=== PATIENT | male | born 1940 | race Caucasian/White ===

== ENCOUNTER 2016-07-09 09:24 | Emergency (ER) | payer OTHER, MEDICAID ==
[~2016-07-09] VITALS: Ht 165.1 cm; Wt 65.8 kg
[2016-07-09 09:25] VITALS: BP 117/58; PULSE 62; RESP 18; TEMP 97.9; O2SAT 98
--- NOTE | 2016-07-09 09:25 | NUR ---
Arrived via BLS ambulance from [facility] where he sought alf from rain. States he has been drinking tequila though he is not able to say how much or when. Attempted to ambulate patient in room. Patient nearly fell down dur to imbalence, instructed patient to sleep and stay in bed. Patient to ER bed 4 to gown for evaluation. Side rails up. Report given to Sujit ESPINO.
--- NOTE | 2016-07-09 09:26 | NUR ---
ER Dr. Wayne at bedside examining patient.
--- NOTE | 2016-07-09 09:30 | NUR ---
Pt sleepy responding to question in [place]. Pt has no complaint of pain,chest pain or SOB. H/O ETOH abuse. No acute distress noted.
--- NOTE | 2016-07-09 10:25 | NUR ---
Pt given urinal per request. Pt able to w/o assist.
--- NOTE | 2016-07-09 11:00 | NUR ---
Pt ambulating w/steady for room requesting to leave. Pt cooperative w/waiting for ACI.
[2016-07-09 11:15] VITALS: BP 116/60; PULSE 62; RESP 18; TEMP 97.9; O2SAT 98
--- NOTE | 2016-07-09 11:15 | NUR ---
Patient given written and verbal discharge instructions and verbalizes understanding. ER MD discussed with patient the results and treatment provided. Given copies of tests performed in ER. Patient in stable condition. ID arm band removed. Patient educated on pain management and to follow up with PMD. Pain Scale 0. Opportunity for questions provided and answered.
== END 2016-07-09 11:15 | disposition home or self-care (01) ==
LOC: SED 09:24
DX: F10.229 Alcohol dependence with intoxication, unspecified (principal)
CPT/HCPCS: 99283

== ENCOUNTER 2016-07-22 01:18 | Emergency (ER) | payer OTHER, MEDICAID ==
[~2016-07-22] VITALS: Ht 167.6 cm; Wt 74.8 kg
[2016-07-22 01:28] VITALS: BP 113/65; PULSE 85; RESP 16; TEMP 97.7; O2SAT 96
--- NOTE | 2016-07-22 01:28 | NUR ---
Patient to ER bed 8 to gown for evaluation. Side rails up.
[2016-07-22] MEDS ORDERED: MAG HYDROX/AL HYDROX/SIMETH 30 ML, BELLADONNA ALKALOIDS/PHENOBARB 10 ML, LIDOCAINE VISC... PO ONE ×3 (01:30)
--- NOTE | 2016-07-22 01:30 | NUR ---
pt in bed 8 with + ETOH, also c/o upper abdominal pain. Dr Brant beckford.
--- NOTE | 2016-07-22 01:34 | NUR ---
ER at bedside examining patient.
[2016-07-22 01:49] VITALS: BP 123/72; PULSE 82; RESP 16; TEMP 97.7; O2SAT 96
--- NOTE | 2016-07-22 01:49 | NUR ---
Patient given written and verbal discharge instructions and verbalizes understanding. ER MD discussed with patient the results and treatment provided. Given copies of tests performed in ER. Patient in stable condition. ID arm band removed. Rx of mylanta given. Patient educated on pain management and to follow up with PMD. Pain Scale 0/10. Opportunity for questions provided and answered.
== END 2016-07-22 01:49 | disposition home or self-care (01) ==
LOC: SED 01:18
DX: K29.20 Alcoholic gastritis without bleeding (principal); F10.20 Alcohol dependence, uncomplicated
CPT/HCPCS: 99283; J2001

== ENCOUNTER 2016-07-27 19:29 | Emergency (ER) | payer OTHER, MEDICAID ==
[~2016-07-27] VITALS: Ht 170.2 cm; Wt 72.6 kg
[2016-07-27 19:30] VITALS: BP 157/80; PULSE 88; RESP 16; TEMP 97.6; O2SAT 99
[2016-07-27] MEDS ORDERED: ASPIRIN 81 MG TAB.CHEW PO ONE (20:00)
[2016-07-27 20:40] LABS: HEMATOCRIT 35.7 % (36-54); HEMOGLOBIN 12.1 g/dL (14.0-18.0); RED CELL DISTRIBUTION WIDTH 14.4 % (9.0-15.0)
[2016-07-27 20:46] LABS: BASOPHILS # (AUTO) 0.1 K/uL (0.0-0.2); BASOPHILS % (AUTO) 2.8 % (0.0-2.0); LYMPHOCYTES # (AUTO) 1.1 K/uL (1.0-5.5); LYMPHOCYTES % (AUTO) 23.2 % (20.5-51.5); MEAN CORPUSCULAR HEMOGLOBIN 30 pg (27-31); MEAN CORPUSCULAR HGB CONC 34 % (32-36); MEAN CORPUSCULAR VOLUME 87 fL (79.0-98.0); MONOCYTES # (AUTO) 0.3 K/uL (0.0-1.0); NEUTROPHILS # (AUTO) 3.3 K/uL (1.8-7.7); WHITE BLOOD COUNT (AUTO) 4.8 K/uL (4.8-10.8)
[2016-07-27 20:47] LABS: PLATELET COUNT (AUTO) 113 K/uL (130-430)
[2016-07-27 20:48] LABS: PROTHROMBIN TIME 10.6 SECS (9.5-12.5)
[2016-07-27 21:00] LABS: ALANINE AMINOTRANSFERASE 30 U/L (12-78); ALBUMIN 3.9 g/dL (3.4-4.8); ANION GAP 13 (5-15); ASPARTATE AMINOTRANSFERASE 36 U/L (10-37); CALCIUM 8.5 mg/dL (8.4-11.0); CHLORIDE 108 mmol/L (98-107); CHOLESTEROL 261 mg/dL (<200); CREATININE 0.54 mg/dL (0.55-1.30); GLUCOSE 99 mg/dL (70-99); HDL CHOLESTEROL 107 mg/dL (>45); LDL CHOLESTEROL 126 mg/dL (<100); POTASSIUM 3.5 mmol/L (3.5-5.1); SODIUM SERUM 146 mmol/L (136-145); TOTAL BILIRUBIN 0.4 mg/dL (0.0-1.0); TOTAL PROTEIN, SERUM 7.4 g/dL (6.4-8.3); TRIGLYCERIDES 117 mg/dL (30-150); UREA NITROGEN, BLOOD 18 mg/dL (8-21)
[2016-07-27] MEDS ORDERED: NACL 0.9% 1,000 ML IV ONE (22:30)
[2016-07-28 05:58] VITALS: BP 148/77; PULSE 86; RESP 16; TEMP 97.6; O2SAT 99
== END 2016-07-28 05:58 | disposition home or self-care (01) ==
LOC: SED 19:29
DX: R07.9 Chest pain, unspecified (principal); F10.20 Alcohol dependence, uncomplicated; R03.0 Elevated blood-pressure reading, without diagnosis of hypertension
CPT/HCPCS: 36415; 71010; 80053; 80061; 83880; 84484; 85025; 85610; 85730; 93005; 96360; 99285; J7030

== ENCOUNTER 2016-08-14 18:41 | Inpatient (IN) | payer OTHER, MEDICAID ==
[~2016-08-14] VITALS: Ht 162.6 cm; Wt 59.9 kg
[2016-08-14 18:47] VITALS: BP 114/63; PULSE 103; RESP 16; TEMP 99.4; O2SAT 97
--- NOTE | 2016-08-14 21:00 | NUR ---
Placed in hallway.
--- NOTE | 2016-08-14 21:05 | NUR ---
ER RAMIREZ Carroll assessing pt.
--- NOTE | 2016-08-14 21:10 | NUR ---
Pt states that he has been having a headache with SOB, nausea, and vomitting for the whole day. Pt lung sounds clear in all lobes. AAOx4. Skins warm, dry, and normal. Will continue to monitor. No other injuries or compaints mentioned/noted. No distress noted.
[2016-08-14] MEDS ORDERED: ACETAMINOPHEN 325 MG TABLET PO ONE (21:15)
[2016-08-14] MEDS ORDERED: FAMOTIDINE 20 MG TABLET PO ONE (22:15)
[2016-08-14] MEDS ORDERED: MAG HYDROX/AL HYDROX/SIMETH 30 ML, LIDOCAINE VISCOUS 2% 15ML (PO) 10 ML, BELLADONNA ALK... PO ONE ×3 (22:15)
--- NOTE | 2016-08-14 22:25 | NUR ---
ER Dr. Mireles at bedside examining patient.
[2016-08-14] MEDS ORDERED: LevALBUTEROL HCL 1.25 MG/0.5 ML *CONC.* VIAL.NEB (XOPENEX CONC.) INH ONE (22:30)
[2016-08-14] MEDS ORDERED: ONDANSETRON HCL 4 MG/2 ML VIAL IVP ONE (22:30)
[2016-08-14] MEDS ORDERED: IPRATROPIUM BROM 0.5 MG/2.5 ML VIAL.NEB (ATROVENT) IH ONE (22:30)
[2016-08-14] MEDS ORDERED: FOLIC ACID 1 MG, THIAMINE HCL 100 MG, MAGNESIUM SULFATE 1 GM, MVI 10 ML in NACL 0.9% 1,... IV ONE (22:30)
[2016-08-14 22:49] LABS: BASOPHILS # (AUTO) 0.1 K/uL (0.0-0.2); BASOPHILS % (AUTO) 0.9 % (0.0-2.0); EOSINOPHILS # (AUTO) 0.1 K/uL (0.0-0.4); EOSINOPHILS % (AUTO) 1.1 % (0.0-4.0); HEMATOCRIT 35.2 % (36-54); HEMOGLOBIN 11.7 g/dL (14.0-18.0); LYMPHOCYTES # (AUTO) 1.3 K/uL (1.0-5.5); LYMPHOCYTES % (AUTO) 20.8 % (20.5-51.5); MEAN CORPUSCULAR HEMOGLOBIN 28 pg (27-31); MEAN CORPUSCULAR HGB CONC 33 % (32-36); MEAN CORPUSCULAR VOLUME 85 fL (79.0-98.0); MONOCYTES # (AUTO) 0.6 K/uL (0.0-1.0); MONOCYTES % (AUTO) 9.8 % (1.7-9.3); NEUTROPHILS # (AUTO) 4.1 K/uL (1.8-7.7); NEUTROPHILS % (AUTO) 67.4 % (40.0-70.0); PLATELET COUNT (AUTO) 143 K/uL (130-430); RED BLOOD CELL COUNT(AUTO) 4.14 MIL/uL (4.2-6.2); RED CELL DISTRIBUTION WIDTH 14.7 % (9.0-15.0); WHITE BLOOD COUNT (AUTO) 6.2 K/uL (4.8-10.8)
[2016-08-14 22:53] LABS: ABG TOTAL HEMOGLOBIN 12.1 G/dL (12.0-18.0); BLOOD GAS BASE EXCESS -2.5 mmol/L (-3.0-3.0); BLOOD GAS PH 7.465 (7.350-7.450)
[2016-08-14 22:54] LABS: BLOOD GAS COHb% 0.3 % (0.5-1.5); BLOOD GAS HHB 3.9 % (0.0-6.0); BLOOD O2Hb% 95.7 % (94.0-97.0)
[2016-08-14 22:59] LABS: ANION GAP 12 (5-15); CALCIUM 8.9 mg/dL (8.4-11.0); CHLORIDE 103 mmol/L (98-107); CREATININE 0.92 mg/dL (0.55-1.30); GLUCOSE 165 mg/dL (70-99); POTASSIUM 3.7 mmol/L (3.5-5.1); SODIUM SERUM 138 mmol/L (136-145); UREA NITROGEN, BLOOD 20 mg/dL (8-21)
--- NOTE | 2016-08-14 23:00 | NUR ---
Moved pt to bed 5 and placed on curtain hemmer automatic. Pt is resting comfortably in bed. VSS. Will continue to monitor. AAOx4. No distress noted.
[2016-08-14 23:04] LABS: ALANINE AMINOTRANSFERASE 30 U/L (12-78); ASPARTATE AMINOTRANSFERASE 25 U/L (10-37); TOTAL BILIRUBIN 0.4 mg/dL (0.0-1.0); TOTAL PROTEIN, SERUM 7.8 g/dL (6.4-8.3)
[2016-08-14 23:07] LABS: PROTHROMBIN TIME 10.4 SECS (9.5-12.5)
[2016-08-15] MEDS ORDERED: THIAMINE HCL 100 MG/ML VIAL ONE (00:16)
[2016-08-15] MEDS ORDERED: FOLIC ACID 5 MG/ML VIAL IV ONE (00:16)
[2016-08-15] MEDS ORDERED: MAGNESIUM SULFATE 1 GM/2 ML VIAL ONE (00:16)
[2016-08-15] MEDS ORDERED: MVI 10 ML VIAL IV ONE (00:16)
--- NOTE | 2016-08-15 00:24 | NUR ---
Note ravinder in EDM - 08/15/16 at 0439 by YUMIKO Moved pt to bed 5 and placed on cardiac rn. Pt is resting comfotably in bed. VSS. Will continue to monitor. AAOx4. No distress noted.
[2016-08-15] MEDS ORDERED: BELLADONNA ALKALOIDS/PHENOBARB 5 ML UDC ONE (00:30)
[2016-08-15] MEDS ORDERED: MAG-AL HYDROX/SIMETH 30 ML UDC ONE (00:30)
[2016-08-15] MEDS ORDERED: LIDOCAINE VISCOUS 2%, 15 ML UDC ONE (00:33)
[2016-08-15] MEDS ORDERED: FAMOTIDINE 20 MG TABLET ONE (00:34)
--- NOTE | 2016-08-15 01:00 | NUR ---
Pt is resting comfortably in bed. VSS. Will continue to monitor. AAOx4. No distress noted.
--- NOTE | 2016-08-15 01:00 | NUR ---
# 22 gauge angiocath placed to R forearm. Use of asceptic technique. Opsite placed over site. Blood return noted. Flushed with 10 cc of normal saline. No evidence of infiltration noted. Patient tolerated well.
[2016-08-15] MEDS ORDERED: IOHEXOL 350 mgI/mL, 150 ML INFUS..BTL IV ONE (01:25)
--- NOTE | 2016-08-15 01:30 | NUR ---
# 20 gauge angiocath placed to L AC. Use of asceptic technique. Opsite placed over site. Blood return noted. Flushed with 10 cc of normal saline. No evidence of infiltration noted. Patient tolerated well.
--- NOTE | 2016-08-15 01:30 | NUR ---
Pt states his head is still hurting. Dr. Mireles made aware.
[2016-08-15] MEDS ORDERED: IBUPROFEN 400 MG TABLET PO ONE (02:00)
--- NOTE | 2016-08-15 02:00 | NUR ---
L AC 20 G infiltrated and disconnected. Placed ice pack on swelling.
[2016-08-15 02:08] LABS: BILIRUBIN,URINE NEGATIVE (NEGATIVE); BLOOD, URINE 2+ (NEGATIVE); CLARITY/URINE CLOUDY (CLEAR); COLOR,URINE YELLOW (YELLOW); GLUCOSE,URINE NEGATIVE (NEGATIVE); KETONES,URINE NEGATIVE (NEGATIVE); LEUKOCYTE ESTERASE ,URINE 1+ (NEGATIVE); NITRITE, URINE POSITIVE (NEGATIVE); PH,URINE 5.5 (5.0-8.0); PROTEIN URINE 1+ (NEGATIVE)
[2016-08-15 02:21] LABS: BACTERIA,URINE MODERATE /HPF (None Seen); MUCUS,URINE None Seen /LPF (None Seen); WBC,URINE >100 /HPF (0-3)
[2016-08-15 02:25] LABS: BARBITURATE, URINE NEGATIVE (NEG <=200); BENZODIAZEPINE, URINE NEGATIVE (NEG <=150); CANNABINOID, URINE NEGATIVE (NEG <=50); COCAINE, URINE NEGATIVE (NEG <=150); METHAMPHETAMINES SCREEN,URINE NEGATIVE (NEG <=500); OPIATE, URINE NEGATIVE (NEG <=100); PHENCYCLIDINE SCREEN,URINE NEGATIVE (NEG <=25); UR TRICYCLIC ANTIDEPRESSANTS NEGATIVE (NEG <=300); URINE AMPHETAMINE NEGATIVE (NEG <=500); URINE METHADONE NEGATIVE (NEG <=200); URINE OXYCODONE SCREEN NEGATIVE (NEG <=100); URINE PROPOXYPHENE SCREEN NEGATIVE (NEG <=300)
[2016-08-15] MEDS ORDERED: HEPARIN SODIUM,PORCINE 5000 UNITS/ML VIAL IVP ONE (02:30)
[2016-08-15] MEDS ORDERED: HEPARIN 25,000 UNITS/D5W 250ML 250 ML IV ONE (02:30)
--- NOTE | 2016-08-15 02:30 | NUR ---
# 20 gauge angiocath placed to R AC. Use of asceptic technique. Opsite placed over site. Blood return noted. Flushed with 10 cc of normal saline. No evidence of infiltration noted. Patient tolerated well.
[2016-08-15] MEDS ORDERED: HEPARIN SODIUM,PORCINE 5000 UNITS/ML VIAL ONE (02:48)
[2016-08-15] MEDS ORDERED: *HEPARIN PER PHARMACY XX ONE (03:00)
--- NOTE | 2016-08-15 03:20 | NUR ---
Dr. Mireles stated blood cultures not needed for this pt.
[2016-08-15] MEDS ORDERED: cefTRIAXone 1 GM IVPB PREMIX 50 ML IV SCH (03:30)
[2016-08-15 03:35] VITALS: BP 153/78; PULSE 69; RESP 20; TEMP 98.4; O2SAT 97
--- NOTE | 2016-08-15 03:35 | NUR ---
ADMISSION NOTE Received patient from ER via gurney. Patient admitted with diagnosis of Pulmonary embolism. Patient is awake, alert, oriented X 3. Patient oriented to hospital room, call light, toileting, pain management and safety-teach back done. Patient informed that Diane will be primary nurse and that their room number is 131a. Personal belongings checked and Belongings List documented. Call light within reach.
--- NOTE | 2016-08-15 03:35 | NUR ---
Patient will be admitted to care of Dr. Meza. Admitted to Telemetry unit. Will go to room 131B. Summary report printed. Report given to Diane ESPINO.
[2016-08-15] MEDS ORDERED: cefTRIAXone 1 GM IVPB PREMIX 50 ML IV ONE (03:37)
--- NOTE | 2016-08-15 04:07 | NUR ---
OPENING NOTE Pt. received from ER via gallo/ruy. Report received from SRINIVAS Cordova. Pt. is AAO x 3. Heparin infusing to right f/a 20g at 10 ml/hr and IV rocephin to right wrist 20g. Belongings accounted for. Urinal given. Pt. voided, emptied 100mls of yellow cloudy urine. Plan of care and safety measures discussed with pt. Educated pt. regarding call light and how to use for any needs. Bed alarm on. Will continue to monitor.
--- NOTE | 2016-08-15 04:12 | NUR ---
NAUSEATED/VOMITING Pt. is nauseated and c/o need to vomit. Logan given. Pt. c/o discomfort to abdomen. Paging Dr. Meza for to report and to request for orders.
--- NOTE | 2016-08-15 04:23 | NUR ---
PAGED: I PAGED DR. EDUARDO I SPOKE WITH HAYDE
[2016-08-15] MEDS ORDERED: MORPHINE 4 MG/ML INJ. SYRINGE IVP PRN (04:30)
[2016-08-15] MEDS ORDERED: HEPARIN 25,000 UNITS in 250 ML PREMIX IV PRN (04:45)
[2016-08-15] MEDS ORDERED: HEPARIN SODIUM,PORCINE 2000 UNITS/0.4 ML BOLUS IVP PRN (04:45)
[2016-08-15] MEDS ORDERED: HEPARIN SODIUM,PORCINE 3000 UNITS/0.6 ML BOLUS IVP PRN (04:45)
[2016-08-15] MEDS ORDERED: PANTOPRAZOLE SODIUM 40 MG/VIAL (PROTONIX) IVP ONE (05:00)
--- NOTE | 2016-08-15 05:00 | NUR ---
SPOKE TO DR. EDUARDO/ORDER RECEIVED Late entry due to pt. care. Reported to Dr. Eduardo pt. is nauseated and vomiting with c/o pain to abdomen. Dr. Eduardo ordered Protonix 40mg IVP daily. Zofran 4mg IVP every four hours as needed for nausea or vomiting. Morphine 4mg IVP every four hours as needed for severe (7-10) pain. Will carry out.
[2016-08-15] MEDS: ONDANSETRON HCL 4 MG/2 ML VIAL IVP PRN ×3 (05:04→20:15)
--- NOTE | 2016-08-15 05:13 | NUR ---
PROTONIX/ZOFRAN Protonix administered as ordered. Zofran administered as ordered for nausea. Educated pt. regarding medication. Pt. verbalized understanding. Pt. vomitted 200mls of gutiérrez emesis. Will continue to monitor.
--- NOTE | 2016-08-15 05:18 | NUR ---
CALLED ADMITTING Called admitting dept. to report pt. was able to tell us his daughter's contact info: Tona Valle [phone]. Admitting stated they will update pt.'s facesheet.
--- NOTE | 2016-08-15 06:29 | NUR ---
CLOSING NOTES All needs met throughout shift. Pt. is resting quietly in bed with no s/s of acute distress. Safety measures in place. Bed alarm on. Will endorse care to oncoming day shift nurse.
[2016-08-15 08:00] VITALS: BP 163/96; PULSE 75; RESP 18; TEMP 97.2; O2SAT 99
--- NOTE | 2016-08-15 08:00 | NUR ---
initial notes rec patient asleep but arousable to stimuli. iv of heparin infsuing well on the r forearm. no bleeding noted. resp easy and unlabored. no sob noted and saturation is 99% on room air. voiding freely using the urinal and with large amount of mely output. will continue to monitor patient.
--- NOTE | 2016-08-15 10:00 | NUR ---
rounds pt was feeling nauseated and was medicated as ordered. sleeps at intervals.
--- NOTE | 2016-08-15 10:14 | NUR ---
Nutrition Update Harley Scale 17 noted. Pt admitted for pulmonary embolism. Diet: regular BMI: 22.7 kg/m2 RD to follow per nutrition care standards.
--- NOTE | 2016-08-15 10:30 | NUR ---
rounds result rec on the ptt and no changes made on the heparin drip.
--- NOTE | 2016-08-15 11:00 | NUR ---
rounds seen by dr chavira and with orders. npo maintained for ultrasound of abdomen at 1300 as per tech.
[2016-08-15] MEDS ORDERED: D5LR IV SCH (11:30)
[2016-08-15] MEDS ORDERED: THIAMINE HCL IV SCH (11:30)
[2016-08-15] MEDS: FAMOTIDINE PF 20 MG/2 ML VIAL IVP SCH ×2 (11:30→20:14)
[2016-08-15] MEDS ORDERED: LORazepam 2 MG/ML VIAL IVP PRN (11:30)
[2016-08-15] MEDS ORDERED: FAMOTIDINE PF 20 MG/2 ML VIAL IVP ONE (11:45)
[2016-08-15 12:20] LABS: ALANINE AMINOTRANSFERASE 22 U/L (12-78); ALBUMIN 3.6 g/dL (3.4-4.8); ASPARTATE AMINOTRANSFERASE 15 U/L (10-37); CALCIUM 8.2 mg/dL (8.4-11.0); CREATININE 0.55 mg/dL (0.55-1.30); GLUCOSE 94 mg/dL (70-99); TOTAL BILIRUBIN 0.6 mg/dL (0.0-1.0); TOTAL PROTEIN, SERUM 6.9 g/dL (6.4-8.3); UREA NITROGEN, BLOOD 12 mg/dL (8-21)
[2016-08-15 12:40] LABS: BASOPHILS % (AUTO) 1.1 % (0.0-2.0); EOSINOPHILS % (AUTO) 0.9 % (0.0-4.0); HEMATOCRIT 32.4 % (36-54); HEMOGLOBIN 10.7 g/dL (14.0-18.0); LYMPHOCYTES # (AUTO) 0.6 K/uL (1.0-5.5); LYMPHOCYTES % (AUTO) 20.2 % (20.5-51.5); MEAN CORPUSCULAR HEMOGLOBIN 28 pg (27-31); MEAN CORPUSCULAR HGB CONC 33 % (32-36); MEAN CORPUSCULAR VOLUME 86 fL (79.0-98.0); MONOCYTES # (AUTO) 0.3 K/uL (0.0-1.0); MONOCYTES % (AUTO) 8.9 % (1.7-9.3); NEUTROPHILS # (AUTO) 2.1 K/uL (1.8-7.7); NEUTROPHILS % (AUTO) 68.9 % (40.0-70.0); PLATELET COUNT (AUTO) 104 K/uL (130-430); RED BLOOD CELL COUNT(AUTO) 3.77 MIL/uL (4.2-6.2); RED CELL DISTRIBUTION WIDTH 14.1 % (9.0-15.0)
--- NOTE | 2016-08-15 13:01 | NUR ---
rounds dr chavira was made aware of the ct chest and ordered to stop the heparin.
[2016-08-15 13:03] LABS: POTASSIUM 3.1 mmol/L (3.5-5.1)
[2016-08-15 13:04] LABS: ANION GAP 6 (5-15); CHLORIDE 87 mmol/L (98-107)
[2016-08-15 13:06] LABS: SODIUM SERUM 119 mmol/L (136-145)
[2016-08-15] MEDS: METOCLOPRAMIDE HCL 10 MG/2 ML VIAL IVP SCH ×2 (13:06→18:32)
--- NOTE | 2016-08-15 15:00 | NUR ---
notes amelia from [facility] called me and stated that she spoke with dr chavira and lung vq will be cancelled.
[2016-08-15 15:22] VITALS: BP 150/78; PULSE 68; RESP 18; TEMP 96.8; O2SAT 98
--- NOTE | 2016-08-15 16:00 | NUR ---
rounds dr chavira was called and confirmed result of cta and chest and gave orders.
[2016-08-15 16:49] VITALS: BP 138/74; PULSE 68; RESP 18; TEMP 98.5; O2SAT 98
[2016-08-15] MEDS ORDERED: POTASSIUM CHLORIDE 20 MEQ TAB.PRT.SR PO ONE (18:00)
--- NOTE | 2016-08-15 18:30 | NUR ---
rounds found out iv fluids, reglan, pepcid given at 1306 was scanned and did not go through.was done manually.
--- NOTE | 2016-08-15 19:00 | NUR ---
closing notes no sob noted. sleeping at intervals. endorsed to night nurse to call dr fan alamo na 119. ivf infusing well on the r forearm. no infiltration noted. with poor appetite. resp easy unlabored. needs attended.
[2016-08-15 20:00] VITALS: BP 163/77; PULSE 73; RESP 16; TEMP 98.3; O2SAT 99
--- NOTE | 2016-08-15 20:00 | NUR ---
2000 BEGINNING OF CEMENTER MACHINE APPLICATOR NOTE Patient in bed resting. He complains of being nauseous and requests a medication. He says he also has "a little" pain in the upper abdomen, but he did not want pain medication. The nurse administered Zofran PRN per MD order. No other distress noted. Fall precautions in place. The nurse noted that the right wrist IV line does not flush and appears to be occluded.
--- NOTE | 2016-08-15 20:57 | NUR ---
PAGED PAGED OLMAN WADDELL AT [phone] SPOKE WITH SAI.
[2016-08-15] MEDS ORDERED: cloNIDine HCL 0.1 MG TABLET PO PRN (21:15)
[2016-08-15] MEDS: NACL 0.9% 1,000 ML IV SCH (21:41)
--- NOTE | 2016-08-15 22:10 | NUR ---
2200 ROUNDS Patient in bed napping. No S/S of distress or pain noted. Fall precautions in place.
[2016-08-16] VITALS: BP 160/76; PULSE 80; RESP 19; TEMP 98.4; O2SAT 100
[2016-08-16] MEDS: METOCLOPRAMIDE HCL 10 MG/2 ML VIAL IVP SCH ×4 (00:02→17:48)
--- NOTE | 2016-08-16 00:10 | NUR ---
0000 ROUNDS Patient in bed resting. The nurse administered the scheduled Reglan IV Push. No S/S of pain or distress noted. The patient requested to walk to the bathroom and the nurse helped him to the bathroom and back to bed. The patient's gait appears pretty steady. Fall precautions in place.
--- NOTE | 2016-08-16 02:30 | NUR ---
0230 ROUNDS Patient in bed sleeping. No S/S of pain or distress noted. Fall precautions in place.
[2016-08-16 04:00] VITALS: BP 176/76; PULSE 66; RESP 18; TEMP 97.4; O2SAT 96
--- NOTE | 2016-08-16 05:02 | NUR ---
0500 ROUNDS Patient in bed sleeping. IVF running smoothly, no pain or distress noted. Call light within reach, bed in low position, bed alarm activated.
--- NOTE | 2016-08-16 07:30 | NUR ---
CLOSING NOTE Patient in bed resting comfortably. No S/S of pain or distress noted. IVF running, fall precautions in place. PAtient's needs met throughout the shift. Report given to the day shift nurse mentioning to ask the doctor about ordering Thiamine (ETOH history). Thiamine was added to the previous IVF D5LR, but since Dr. Meza changed the IVF to Normal Saline, the patient needs Thiamine ordered separately.
[2016-08-16 07:32] LABS: CHOLESTEROL 227 mg/dL (<200); HDL CHOLESTEROL 83 mg/dL (>45); LDL CHOLESTEROL 118 mg/dL (<100); LIPASE 115 U/L (73-393); TRIGLYCERIDES 140 mg/dL (30-150)
--- NOTE | 2016-08-16 07:42 | NUR ---
INITIAL NOTES RECEIVED PATIENT ON BED AWAKE.BREATHING EVEN AND UNLABORED.NO ACUTE DISTRESS.IVF INFUSING WELL;NO SIGNS AND SYMPTOMS OF INFILTRATION.SAFETY AND FALL PRECAUTIONS IN PLACE.CALL LIGHT WITHIN REACH
[2016-08-16 08:05] VITALS: BP 147/83; PULSE 71; RESP 18; TEMP 98.5; O2SAT 97
[2016-08-16 08:07] LABS: % FREE PSA 13.5 % (.); FREE PSA 2.45 ng/mL
[2016-08-16] MEDS: FAMOTIDINE PF 20 MG/2 ML VIAL IVP SCH ×2 (08:17→22:42)
[2016-08-16] MEDS: PANTOPRAZOLE SODIUM 40 MG/VIAL (PROTONIX) IVP SCH (08:17)
[2016-08-16] MEDS: NEPHROVITE, (FOLIC ACID/VITAMIN B COMP W-C 1 TAB) PO SCH (08:35)
--- NOTE | 2016-08-16 10:30 | NUR ---
NOTES ASSISTED PATIENT TO THE RESTROOM;WITH STEADY GAIT;TOLERATED ACTIVITY WELL.REFUSED TO USE THE COMMODE
[2016-08-16] MEDS: NACL 0.9% 1,000 ML IV SCH ×3 (11:33→22:43)
[2016-08-16 12:30] VITALS: BP 146/72; PULSE 70; RESP 18; TEMP 98.1; O2SAT 98
--- NOTE | 2016-08-16 12:40 | NUR ---
NOTES SERVED LUNCH;TOLERATED FOOD WELL
[2016-08-16 12:41] LABS: ANION GAP 12 (5-15); CALCIUM 8.7 mg/dL (8.4-11.0); CHLORIDE 106 mmol/L (98-107); CREATININE 0.63 mg/dL (0.55-1.30); GLUCOSE 92 mg/dL (70-99); POTASSIUM 3.7 mmol/L (3.5-5.1); SODIUM SERUM 138 mmol/L (136-145); UREA NITROGEN, BLOOD 9 mg/dL (8-21)
[2016-08-16 12:45] LABS: BASOPHILS # (AUTO) 0.1 K/uL (0.0-0.2); BASOPHILS % (AUTO) 1.8 % (0.0-2.0); EOSINOPHILS # (AUTO) 0.1 K/uL (0.0-0.4); EOSINOPHILS % (AUTO) 1.7 % (0.0-4.0); HEMATOCRIT 31.8 % (36-54); HEMOGLOBIN 10.5 g/dL (14.0-18.0); LYMPHOCYTES # (AUTO) 0.7 K/uL (1.0-5.5); LYMPHOCYTES % (AUTO) 20.3 % (20.5-51.5); MEAN CORPUSCULAR HEMOGLOBIN 28 pg (27-31); MEAN CORPUSCULAR HGB CONC 33 % (32-36); MEAN CORPUSCULAR VOLUME 86 fL (79.0-98.0); MONOCYTES # (AUTO) 0.3 K/uL (0.0-1.0); MONOCYTES % (AUTO) 8.5 % (1.7-9.3); NEUTROPHILS # (AUTO) 2.2 K/uL (1.8-7.7); PLATELET COUNT (AUTO) 94 K/uL (130-430); RED BLOOD CELL COUNT(AUTO) 3.72 MIL/uL (4.2-6.2); RED CELL DISTRIBUTION WIDTH 14.3 % (9.0-15.0); WHITE BLOOD COUNT (AUTO) 3.4 K/uL (4.8-10.8)
[2016-08-16 14:11] LABS: NEUTROPHILS % (AUTO) 67.7 % (40.0-70.0)
[2016-08-16 14:29] LABS: PROSTATE SPECIFIC AG TOTAL 18.1 ng/mL (0.0-4.0)
--- NOTE | 2016-08-16 14:34 | NUR ---
Social Service Note: Pt referred to aids social worker by physician due to pt being homeless. ICING MIXER met with pt at bedside with Rogelio Cernaretort loader. Pt states that upon discharge he plans to go to his [facility] in [place] (address on face sheet) for a couple of days until his social security check comes in and then pt states that he is moving to [place] to stay with his sister. Pt states that he stays with his daughter, the streets, or sober living home. Pt states that he has been to [facility] in [place] for up to 30 days at a time. ICING MIXER provided pt with substance abuse treatment facilities listing, homeless assistance resources, food bank list, housing authority information, and transportation resources. ICING MIXER has also placed homeless waiver in pt's chart to be signed upon discharge. ICING MIXER will remain available for support and will follow up as needed.
--- NOTE | 2016-08-16 15:30 | NUR ---
NOTES PATIENT ON BED AWAKE.NO ACUTE DISTRESS
--- NOTE | 2016-08-16 16:00 | NUR ---
NOTES PATIENT CLAIMED HE HAS EPISODES OF DIARRHEA ABOUT 5X AFTER HE DRANK BOOST;INFORM PATIENT TO LET THE NURSE KNOW WHEN HE HAS ONE AGAIN SO THE NURSE CAN CHECK HIS STOOL;AGREED AND VERBALIZED UNDERSTANDING;WILL INFORM MD
[2016-08-16 16:03] VITALS: BP 156/83; PULSE 75; RESP 17; TEMP 98.4; O2SAT 100
--- NOTE | 2016-08-16 18:33 | NUR ---
CLOSING NOTES PATIENT ON BED AWAKE WATCHING T.V.BREATHING EVEN AND UNLABORED.NO ACUTE DISTRESS.IVF INFUSING WELL;NO SIGNS AND SYMPTOMS OF INFILTRATION.SAFETY AND FALL PRECAUTIONS IN PLACE.CALL LIGHT WITHIN REACH.WILL ENDORSE TO NEXT SHIFT ACCORDINGLY
--- NOTE | 2016-08-16 18:40 | NUR ---
NOTES DR. EDUARDO ON THE UNIT MADE AWARE REGARDING PATIENT'S EPISODE OF DIARRHEA SAID WALE; Addendum: 08/16/16 at 1842 by Renita Harding RN DAISY CABRAL;CARRIED OUT
[2016-08-16] MEDS ORDERED: LOPERAMIDE HCL 2 MG CAPSULE PO PRN (18:45)
[2016-08-16] MEDS ORDERED: LOPERAMIDE HCL 2 MG CAPSULE PO ONE (18:45)
[2016-08-16] MEDS: LIPASE/PROTEASE/AMYLASE 1 CAP PO SCH (19:04)
--- NOTE | 2016-08-16 20:00 | NUR ---
ROUNDS PATIENT IN BED, WATCHING TV, NOT IN DISTRESS, VITALS STABLE. DENIES ANY PAIN AND DISCOMFORT AT THIS TIME. ASSESSMENT DONE AND DOCUMENTED. SEE FLOWSHEET. NEEDS ATTENDED TO. SAFETY AND FALL PRECAUTION MEASURES IN PLACED. BED ALARM ON. BED IN LOW AND LOCKED POSITION. CALL LIGHT PLACED WITHIN REACH.
--- NOTE | 2016-08-16 21:10 | NUR ---
MEDICATIONS DUE MEDICATIONS GIVEN SCHEDULED, TOLERATED WELL. WILL CONTINUE TO MONITOR.
[2016-08-17] VITALS (7 sets, daily range): BP systolic 130–165; BP diastolic 70–87; PULSE 68–90; RESP 16–20; TEMP 96–98.7; O2SAT 97–99
--- NOTE | 2016-08-17 | NUR ---
PATIENT RESTING: Patient resting quietly. No acute distress noted. Vital signs within normal range.
--- NOTE | 2016-08-17 04:00 | NUR ---
PATIENT RESTING: Patient resting quietly. No acute distress noted. Vital signs within normal range.
[2016-08-17] MEDS: METOCLOPRAMIDE HCL 10 MG/2 ML VIAL IVP SCH ×4 (06:30→18:00)
--- NOTE | 2016-08-17 06:50 | NUR ---
CLOSING NOTES PATIENT AWAKE, VITAL STABLE, NO PAIN AND DISCOMFORT AT THIS TIME. ALL NEEDS ATTENDED TO. SAFETY AND FALL PRECAUTION MEASURES MAINTAINED. CALL LIGHT PLACED WITH PATIENT.
--- NOTE | 2016-08-17 08:00 | NUR ---
am rounds awake, alert, oriented x4. central african speaking, denies any discomfort at this time.IVF infusing with NS @ 100 ml/hr via left arm. spilled urine with urinal on the floor. pt. needs attended. breakfast completed and ate 100%.
[2016-08-17] MEDS: PANTOPRAZOLE SODIUM 40 MG/VIAL (PROTONIX) IVP SCH (08:21)
[2016-08-17] MEDS: FAMOTIDINE PF 20 MG/2 ML VIAL IVP SCH ×2 (08:21→21:38)
[2016-08-17] MEDS: LIPASE/PROTEASE/AMYLASE 1 CAP PO SCH ×3 (08:22→18:25)
[2016-08-17] MEDS: NEPHROVITE, (FOLIC ACID/VITAMIN B COMP W-C 1 TAB) PO SCH (08:22)
--- NOTE | 2016-08-17 10:45 | NUR ---
ROUNDS: PT. IV ALARMING, CHECKED FOR PATENCY BUT INFILTRATED. NURSE SUZANNE TRANSLATED IN FINNISH THAT IV SITE NEEDS TO BE CHANGED. GAUGE 22 ON LEFT HAND INSERTED WITHOUT DIFFICULTY AND RECONNECTED IVF. NEEDS ATTENDED.
--- NOTE | 2016-08-17 12:30 | NUR ---
ROUNDS: pt. having lunch, no complaints.
--- NOTE | 2016-08-17 13:50 | NUR ---
Dr. Meza came per nurse Willi, IV lock and urology consult with Dr. Vargas ordered,pt. informed.
--- NOTE | 2016-08-17 14:02 | NUR ---
CALLED UROLOGY CONSULT TO Gely SIMON, RE: HIGH PSA. SPOKE TO MARY
--- NOTE | 2016-08-17 15:00 | NUR ---
NOTES: pt. awake, wants to walk in the hallway, nurse Willi aware. pt. changed to his regular clothes, removed pt. gown.
--- NOTE | 2016-08-17 17:15 | NUR ---
NOTES: Dr. Vargas here and seen pt. for urology consult , nurse Willi and myself at bedside. noted IV site,needle out, pt. does not know what happened, will reinsert later.
--- NOTE | 2016-08-17 18:28 | NUR ---
CLOSING NOTES: pt. awake, alert, oriented. nurse Willi informed pt. about insertion of another IV site but pt. refused. denies any discomfort. informed about change of shift. call light within reach.will endorse to incoming shift.
--- NOTE | 2016-08-17 19:15 | NUR ---
change of shift.pt.initial assessment.language barrier extant.lebanese:pt's sole language.lucid.upon inquiry:pt. states no pain,nausea.i am apprised of the necessity 2 re-establish the iv access.
--- NOTE | 2016-08-17 19:35 | NUR ---
endorsed pt. to mini shifter with nurse Ziegler.
--- NOTE | 2016-08-17 19:45 | NUR ---
pt.assessed.v/s assessed:values w/in normal limits.i have apprised the pt.that snacks r available throughout the night.pt.request sandwich,milk.no c/o pain,nausea.urinal emptied.call eli w/in pt's reach.
--- NOTE | 2016-08-17 20:00 | NUR ---
i have provided the pt's snacks.emptied the urinal.no other request@this hour.call light w/in pt's reach.
--- NOTE | 2016-08-17 21:00 | NUR ---
i have re-established the iv access.i have administered ivp:pepcid.2100p medications.i have emptied the urinal. no request @this hour.call eil west w/in pt's reach.
--- NOTE | 2016-08-17 22:00 | NUR ---
pt.assessed.pt.repositioned self.i have emptied the urinal.no c/o pain,nausea.pt.requested sandwich.i have provided the snack.call light w/in the pt's reach.
--- NOTE | 2016-08-18 | NUR ---
pt.assessed.pt.repositioned self.i have emptied the urinal.[pt.requested a snack;i have provided sandwich,crackers,milk. call light placed w/in pt's reach.
[2016-08-18] MEDS: METOCLOPRAMIDE HCL 10 MG/2 ML VIAL IVP SCH ×3 (00:23→11:59)
--- NOTE | 2016-08-18 01:00 | NUR ---
pt.assessed.pt.presents quiescent affect;calm,asleep.call light w/in pt's reach.
--- NOTE | 2016-08-18 02:00 | NUR ---
assessed.pt.pt.repositioned self.i have urinal emptied.pt.presents quiescent affect;calm,asleep.call light w/in pt's reach.
--- NOTE | 2016-08-18 03:00 | NUR ---
pt.assessed.pt.presents quiescent affect;calm,asleep.call light w/in pt's reach.
--- NOTE | 2016-08-18 04:00 | NUR ---
pt.assessed.pt.repositioned self.no distress/discomfort manifested.call light w/in pt's reach.
--- NOTE | 2016-08-18 04:52 | NUR ---
i have emptied the urinal.pt.presents quiescent affect;calm,asleep.call light w/in pt's reach.
--- NOTE | 2016-08-18 05:51 | NUR ---
pt.assessed.pt.awake.pt.request a soda:i have provided the soda.pt.required the re-establishment of a new iv access.i have re-established the iv access.0600 a reglan administered via new access. pt.requested clean blankets.i have provided the blankets.call light placed w/in pt's reach. Addendum: 08/18/16 at 0559 by Toney Hdz RN urinal emptied.
[2016-08-18 07:16] LABS: ANION GAP 10 (5-15); CHLORIDE 105 mmol/L (98-107); CREATININE 0.63 mg/dL (0.55-1.30); GLUCOSE 84 mg/dL (70-99); POTASSIUM 3.7 mmol/L (3.5-5.1); SODIUM SERUM 138 mmol/L (136-145); UREA NITROGEN, BLOOD 19 mg/dL (8-21)
[2016-08-18 07:29] LABS: BASOPHILS % (AUTO) 0.8 % (0.0-2.0); EOSINOPHILS # (AUTO) 0.1 K/uL (0.0-0.4); EOSINOPHILS % (AUTO) 1.9 % (0.0-4.0); HEMATOCRIT 33.7 % (36-54); HEMOGLOBIN 11.3 g/dL (14.0-18.0); LYMPHOCYTES % (AUTO) 21.6 % (20.5-51.5); MEAN CORPUSCULAR HEMOGLOBIN 28 pg (27-31); MEAN CORPUSCULAR HGB CONC 33 % (32-36); MEAN CORPUSCULAR VOLUME 85 fL (79.0-98.0); MONOCYTES # (AUTO) 0.4 K/uL (0.0-1.0); NEUTROPHILS # (AUTO) 2.9 K/uL (1.8-7.7); NEUTROPHILS % (AUTO) 66.7 % (40.0-70.0); PLATELET COUNT (AUTO) 89 K/uL (130-430); RED BLOOD CELL COUNT(AUTO) 3.96 MIL/uL (4.2-6.2); RED CELL DISTRIBUTION WIDTH 14.2 % (9.0-15.0); WHITE BLOOD COUNT (AUTO) 4.4 K/uL (4.8-10.8)
[2016-08-18 08:00] VITALS: BP 140/98; PULSE 88; RESP 17; TEMP 97.4; O2SAT 97
--- NOTE | 2016-08-18 08:00 | NUR ---
INITIAL NOTE PT LAYING DOWN RESTING, EASY TO AROUSE, ALERT AND ORIENTED X3, INDONESIAN SPEAKING, NO S/S OF DISTRESS OR COMPLAINT PAIN AT THIS TIME, VSS, IV TO RIGHT HAND, SALINE LOCKED, PATENT AND INTACT, NO S/S OF INFILTRATION NOTED. PT STATES HE HAS NO NEEDS AT THIS TIME, PT REORIENTED TO USE OF CALL LIGHT AND IT IS PLACED WITHIN REACH. BED IN LOW POSITION AND LOCKED, WILL FOLLOW UP
[2016-08-18] MEDS: NEPHROVITE, (FOLIC ACID/VITAMIN B COMP W-C 1 TAB) PO SCH (09:00)
[2016-08-18] MEDS: LIPASE/PROTEASE/AMYLASE 1 CAP PO SCH ×2 (09:00→11:59)
[2016-08-18] MEDS: PANTOPRAZOLE SODIUM 40 MG/VIAL (PROTONIX) IVP SCH (09:00)
[2016-08-18] MEDS: FAMOTIDINE PF 20 MG/2 ML VIAL IVP SCH (09:01)
--- NOTE | 2016-08-18 10:00 | NUR ---
PT UP AND WALKING AROUND UNIT, STEADY GAIT NOTED, NO S/S OF DISTRESS OR COMPLAINT OF PAIN, PT STATES HE FINE, AND HAS NO NEEDS AT THIS TIME, WILL CONTINUE TO MONITOR.
[2016-08-18 12:00] VITALS: BP 142/92; PULSE 84; RESP 20; TEMP 97.7; O2SAT 97
--- NOTE | 2016-08-18 14:45 | NUR ---
dr chavira pagebibi. pt states that he was told he was going to be discharged today and he would like to discharge immediately or else he will refuse discharge later today. Dr chavira paged to inquire whether the patient is anticipated to be discharged today or staying following night. will follow up
--- NOTE | 2016-08-18 15:00 | NUR ---
DR EDUARDO AT BEDSIDE, RECEIVED NEW ORDER TO DISCHARGE PATIENT HOME
--- NOTE | 2016-08-18 15:30 | NUR ---
DAUGHTER, PAMELA SILVA NOTIFIED OF DISCHARGE ([phone]), DAUGHTER STATED SHE DOES NOT GET OFF WORK UNTIL 7 PM,BUT IF A FORM OF TRANSPORTATION CAN BE PROVIDED SHE CAN PROVIDE AN ADDRESS. ADDRESS NOTED, PATIENT AGREES. PLAN OF CARE DISCUSSED WITH DAUGHTER PER PATIENTS REQUEST, WILL FOLLOW UP WITH DISCHARGE CARE.
[2016-08-18] MEDS ORDERED: THIA100T13 PO (16:00)
[2016-08-18] MEDS ORDERED: CHOL500013 PO (16:02)
[2016-08-18] MEDS ORDERED: BENA10TA2 PO (16:03)
[2016-08-18] MEDS ORDERED: CEPH250C PO (16:04)
[2016-08-18 16:25] VITALS: BP 139/81; PULSE 66; RESP 18; TEMP 98.3; O2SAT 100
--- NOTE | 2016-08-18 16:30 | NUR ---
TRANSITIONAL CARE PROVIDED, PAPER WORK REVIEWED AND SIGNED, PATIENT AWARE THAT TAXI WAS ORDERED AND PATIENT IS AWAITING [employer]. WILL FOLLOW UP
[2016-08-18 17:06] VITALS: BP 139/86; PULSE 80; RESP 20; TEMP 97.5; O2SAT 97
--- NOTE | 2016-08-18 17:45 | NUR ---
D/C Patient Patient given medication reconciliation form and D/C instructions. Exit Care provided. Patient verbalized understanding. MD discussed with patient the results and treatment provided. Ambulatory with steady gait for discharge to home. Patient in stable condition, ID band removed. IV catheter removed, intact and dressing applied, no active bleeding. Rx of THIAMINE, VITAMIN D3, LOTENSIN, KEFLEX given. Patient educated on pain management. All belongings sent with patient. Patient left via taxi to address provided by daughter whom agreed to take patient under their care. Daughter, Tona, called as soon as patient was picked up via taxi.
--- NOTE | 2016-08-23 10:23 | NUR ---
Discharge Follow Up Phone Call GAUGE MAKER APPRENTICE phoned patient's daughter, Tona [phone], on 08/22/16 and left a voicemail message. GAUGE MAKER APPRENTICE phoned Tona today. Tona stated that patient was a chronic alcoholic. She wasn't sure if he had picked up his medications or made a follow up appointment, but she believed he had not. She will encourage patient when she sees him to follow up, but she does not believe patient will. Tona wanted a place she could bring patient that he would be held and not given alcohol. GAUGE MAKER APPRENTICE explained he would have to be put on a hold for that. She understands. Patient wants to stop drinking and has for short periods of time, but has been unable to stop. They are aware of sober living homes and patient has stayed there in the past. Senior Technical Business Analyst will remain available upon request.
== END 2016-08-18 17:45 | disposition home or self-care (01) | DRG 896 ==
LOC: SED 18:41 → STU 08-15 02:54 → UNDODEPER 08-15 04:38 → SMU 08-16 23:12
PROVIDERS: ADMIT Internal Medicine; ATTEND Internal Medicine
DX: F10.239 Alcohol dependence with withdrawal, unspecified (principal); K85.20 Alcohol induced acute pancreatitis without necrosis or infection; D61.818 Other pancytopenia; N39.0 Urinary tract infection, site not specified; K29.20 Alcoholic gastritis without bleeding; N40.0 Benign prostatic hyperplasia without lower urinary tract symptoms; I70.90 Unspecified atherosclerosis; Z86.73 Personal history of transient ischemic attack (TIA), and cerebral infarction without residual deficits; Z59.0 Homelessness; Z87.11 Personal history of peptic ulcer disease; Z90.49 Acquired absence of other specified parts of digestive tract; Z86.718 Personal history of other venous thrombosis and embolism
CPT/HCPCS: 36415; 36600; 70450-TC; 71010; 71275; 76700-TC; 80048; 80053; 80061; 80307; 81000-TC; 82105; 82306; 82803-TC; 83690-TC; 83880; 84153; 84484; 85025; 85379; 85610-TC; 85730-TC; 87086; 87186-TC; 93005; 93970; 94640; 96365; 96367; 96375; 97110-GP; 97116-GP; 97530-GP; 99285; C9113; J0696; J1644; J2001; J2405; J2765; J3411; J3475; J3490; J7030; J7120; Q9967

== ENCOUNTER 2019-06-09 10:12 | Emergency (ER) | payer OTHER, MEDICAID ==
[~2019-06-09] VITALS: Ht 172.7 cm; Wt 77.1 kg
[~2019-06-09 10:12] MED LIST: BENA10TA11 PO; CEPH250C PO; CHOL500013 PO; THIA100T13 PO
[2019-06-09 10:15] VITALS: BP_SYST 159
--- NOTE | 2019-06-09 10:19 | NUR ---
Patient triaged and placed in waiting room. VSS and patient appears in no acute distress at this time. Accompanied by EMS, awaiting available bed, and MD notified of need for MSE.
--- NOTE | 2019-06-09 10:23 | NUR ---
Patient was brought in from a [employer] Parking lot for alchohol intoxication via EMS. Patient appears intoxicated, clothing is wet, smells of urine, redness to right eye, abrasion to tip of nose. Patient is complaining of headache.
--- NOTE | 2019-06-09 10:49 | NUR ---
Patient to ER bed 03 for evaluation. Side rails up. Report given to Sal ESPINO.
[2019-06-09] MEDS ORDERED: ACETAMINOPHEN 500 MG TABLET PO ONE (11:00)
[2019-06-09] MEDS ORDERED: NACL 0.9% 2,000 ML IV ONE (11:00)
--- NOTE | 2019-06-09 11:09 | NUR ---
2 unsuccessful IV attempts made. SRINIVAS Kong notified.
[2019-06-09 12:18] LABS: BASOPHILS # (AUTO) 0.1 K/uL (0.0-0.2); BASOPHILS % (AUTO) 1.7 % (0.0-2.0); EOSINOPHILS % (AUTO) 0.5 % (0.0-4.0); HEMATOCRIT 38.1 % (36-54); HEMOGLOBIN 12.7 g/dL (14.0-18.0); LYMPHOCYTES % (AUTO) 30.5 % (20.5-51.5); MEAN CORPUSCULAR HEMOGLOBIN 30 pg (27-31); MEAN CORPUSCULAR HGB CONC 33 % (32-36); MEAN CORPUSCULAR VOLUME 91 fL (79.0-98.0); MONOCYTES # (AUTO) 0.2 K/uL (0.0-1.0); MONOCYTES % (AUTO) 4.6 % (1.7-9.3); NEUTROPHILS # (AUTO) 2.1 K/uL (1.8-7.7); NEUTROPHILS % (AUTO) 62.7 % (40.0-70.0); PLATELET COUNT (AUTO) 160 K/uL (130-430); RED BLOOD CELL COUNT(AUTO) 4.19 MIL/uL (4.2-6.2); RED CELL DISTRIBUTION WIDTH 16.2 % (9.0-15.0); WHITE BLOOD COUNT (AUTO) 3.3 K/uL (4.8-10.8)
[2019-06-09 12:34] LABS: ANION GAP 14 (5-15); CHLORIDE 106 mmol/L (98-107); CREATININE 0.48 mg/dL (0.55-1.30); GLUCOSE 79 mg/dL (70-99); POTASSIUM 3.7 mmol/L (3.5-5.1); SODIUM SERUM 143 mmol/L (136-145); UREA NITROGEN, BLOOD 13 mg/dL (8-21)
[2019-06-09 12:52] LABS: ALANINE AMINOTRANSFERASE 35 U/L (12-78); ALBUMIN 3.5 g/dL (3.4-4.8); ASPARTATE AMINOTRANSFERASE 40 U/L (10-37); TOTAL BILIRUBIN 0.4 mg/dL (0.0-1.0)
[2019-06-09 13:02] VITALS: BP_SYST 142
--- NOTE | 2019-06-09 13:02 | NUR ---
Patient given written and verbal discharge instructions and verbalizes understanding. ER MD discussed with patient the results and treatment provided. Patient in stable condition. ID arm band removed. IV catheter removed intact and dressing applied, no active bleeding. No Rx given. Patient educated on pain management and to follow up with PMD. Pain Scale 2/10 tolerable for pt . Opportunity for questions provided and answered. Medication side effect fact sheet provided.
== END 2019-06-09 13:02 | disposition home or self-care (01) ==
LOC: SED 10:12
DX: F10.229 Alcohol dependence with intoxication, unspecified (principal); Y90.8 Blood alcohol level of 240 mg/100 ml or more; Z88.8 Allergy status to other drugs, medicaments and biological substances; Z59.0 Homelessness
CPT/HCPCS: 36415; 80053; 85025; 99283; J7030